=== PATIENT | male | born 1950 | race African-American/Black ===

== ENCOUNTER 2023-01-19 10:04 | Inpatient (IN) | payer MEDICARE, MEDICAID ==
[~2023-01-19] VITALS: Ht 182.9 cm; Wt 78.9 kg
[~2023-01-19 10:04] MED LIST: ACET-2708 PO; AMIN30LI2 PO; APIX2.5T PO; ASCO500C15 PO; ASPI-1497 PO; ATOR20TA65 PO; CHOL2000 PO; EPOE40009 IJ; FENTANYL CITRATE/PF 50MCG/ML 2ML VIAL ONE; FOLI0.8T23 PO; MELA2.5T16 PO; MIDAZOLAM HCL 2 MG/2 ML VIAL ONE; POLY17PO43 PO; PROPOFOL 200MG/20ML VIAL IV ONE; ROCURONIUM BROMIDE 10MG/ML VIAL 5ML IV ONE; SENN-257 PO; SEVE800T8 PO
[2023-01-19 11:00] LABS: BASOPHILS % 0.7 % (0.0-2.0); EOSINOPHILS % 0.7 % (0.0-5.0); HEMATOCRIT. 35.5 % (42.0-52.0); HEMOGLOBIN. 11.4 g/dL (14.0-18.0); LYMPHOCYTES % 13.3 % (20.0-50.0); MEAN CORPUSCULAR HEMOGLOBIN 23.3 pg (28.0-32.0); MEAN CORPUSCULAR VOLUME 72.6 fL (80.0-94.0); NEUTROPHILS % 75.3 % (40.0-76.0); PLATELET 409 x1000/uL (130-400); RED BLOOD CELL COUNT 4.88 mill/uL (4.7-6.1); RED CELL DISTRIBUTION WIDTH 23.5 % (11.6-14.6)
[2023-01-19 11:18] LABS: INR 1.1; PARTIAL THROMBOPLASTIN TIME 34.7 sec (23.4-31.0); PROTHROMBIN TIME 11.9 sec (9.6-11.0)
[2023-01-19 12:49] LABS: PLATELET ESTIMATE NORMAL
[2023-01-19] MEDS ORDERED: SODIUM CHLORIDE 0.9% 500 ML IV SCH (13:00)
[2023-01-19] MEDS ORDERED: POLYMYXIN B SULFATE 500000 UNITS/VIAL ONE (13:59)
[2023-01-19] MEDS ORDERED: LIDOCAINE HCL 1% 20ML VIAL (Pyxis) INJ ONE (13:59)
[2023-01-19] MEDS ORDERED: BUPIVACAINE HCL/PF 0.5% (5MG/ML) 30ML ONE (13:59)
[2023-01-19] MEDS ORDERED: PROPOFOL 200MG/20ML VIAL IV ONE (14:00)
[2023-01-19] MEDS ORDERED: FENTANYL CITRATE/PF 50MCG/ML 2ML VIAL ONE (14:00)
[2023-01-19] MEDS ORDERED: CEFAZOLIN SODIUM 1000MG/VIAL ONE (14:47)
[2023-01-19] MEDS ORDERED: EPHEDRINE SULFATE 50MG/ML VIAL ONE (15:16)
[2023-01-19] MEDS ORDERED: PHENYLEPHRINE HCL 10 MG/ML 1ML (IV VIAL) IV ONE (15:34)
[2023-01-19] MEDS ORDERED: ONDANSETRON HCL 4MG/2ML INJ IV PRN ×2 (16:00→18:15)
[2023-01-19] MEDS ORDERED: LABETALOL 5MG/ML SYR 20 MG/4 ML SYRINGE IV PRN (16:00)
[2023-01-19] MEDS ORDERED: HYDROMORPHONE HCL/PF 2MG/ML CPJ IV PRN (16:00)
[2023-01-19] MEDS ORDERED: MEPERIDINE HCL/PF 25MG/ML CPJ IV PRN (16:00)
[2023-01-19] MEDS ORDERED: MORPHINE SULFATE 2 MG/ML CPJ (NOT FOR IM USE) IV PRN (18:15)
[2023-01-19] MEDS ORDERED: NALOXONE HCL 0.4MG/ML VIAL IV PRN (18:30)
[2023-01-19] MEDS ORDERED: DEXTROSE 50% WATER 50ML SYRINGE IV PRN (18:30)
[2023-01-19 20:00] VITALS: BP 153/80
[2023-01-19] MEDS: BLOOD SUGAR DIAGNOSTIC STRIP TEST SCH (21:00)
[2023-01-19] MEDS: INSULIN LISPRO 100 UNITS/ML SUBCUT SCH (21:00)
[2023-01-20] VITALS (15 sets, daily range): BP systolic 111–183; BP diastolic 50–93
[2023-01-20 06:59] LABS: HEMATOCRIT. 31.3 % (42.0-52.0); HEMOGLOBIN. 9.8 g/dL (14.0-18.0); MEAN CORPUSCULAR VOLUME 73.5 fL (80.0-94.0); MEAN PLATELET VOLUME 7.5 fl (7.4-10.4); PLATELET 403 x1000/uL (130-400); RED BLOOD CELL COUNT 4.26 mill/uL (4.7-6.1); RED CELL DISTRIBUTION WIDTH 23.4 % (11.6-14.6)
[2023-01-20] MEDS: BLOOD SUGAR DIAGNOSTIC STRIP TEST SCH ×3 (07:29→21:00)
[2023-01-20 07:41] LABS: CHLORIDE 99 mEq/L (98-107)
[2023-01-20] MEDS: INSULIN LISPRO 100 UNITS/ML SUBCUT SCH ×2 (07:50→12:50)
[2023-01-20] MEDS: CLONIDINE 0.1MG TABLET PO PRN (08:49)
[2023-01-20] MEDS: AMLODIPINE 5MG TABLET PO SCH (10:00)
[2023-01-20 12:04] LABS: HEPATITIS B SURFACE ANTIGEN NEGATIVE
[2023-01-20 13:37] LABS: PLATELET ESTIMATE SLIGHTLY INCREASED
[2023-01-20] MEDS: SEVELAMER CARBONATE 800 MG TABLET PO SCH (16:38)
[2023-01-20] MEDS: ACETAMINOPHEN 325MG TABLET PO PRN (16:39)
[2023-01-21] VITALS: BP 175/66
[2023-01-21] MEDS: HYDRALAZINE HCL 50MG TABLET PO SCH ×2 (00:47→14:00)
[2023-01-21 04:00] VITALS: BP 181/79
[2023-01-21] MEDS: CLONIDINE 0.1MG TABLET PO PRN (05:43)
[2023-01-21 06:35] LABS: HEMATOCRIT. 30.3 % (42.0-52.0); HEMOGLOBIN. 9.4 g/dL (14.0-18.0); MEAN CORPUSCULAR HEMOGLOBIN 22.7 pg (28.0-32.0); MEAN CORPUSCULAR VOLUME 73.1 fL (80.0-94.0); MEAN PLATELET VOLUME 7.6 fl (7.4-10.4); PLATELET 376 x1000/uL (130-400); RED BLOOD CELL COUNT 4.15 mill/uL (4.7-6.1); RED CELL DISTRIBUTION WIDTH 24.2 % (11.6-14.6)
[2023-01-21] MEDS: BLOOD SUGAR DIAGNOSTIC STRIP TEST SCH ×2 (07:20→12:20)
[2023-01-21] MEDS: INSULIN LISPRO 100 UNITS/ML SUBCUT SCH ×2 (07:50→12:50)
[2023-01-21] MEDS: SEVELAMER CARBONATE 800 MG TABLET PO SCH ×4 (07:50→17:01)
[2023-01-21 08:00] VITALS: BP 170/76
[2023-01-21] MEDS ORDERED: VANCOMYCIN 1,500 MG in DEXT 5% WATER 250 ML IV NR (09:00)
[2023-01-21] MEDS: AMLODIPINE 5MG TABLET PO SCH (09:14)
[2023-01-21] MEDS: FOLIC ACID/VITAMIN B COMP W-C TABLET PO SCH (09:14)
[2023-01-21] MEDS: ACETAMINOPHEN 325MG TABLET PO PRN (09:15)
[2023-01-21 11:43] LABS: PLATELET ESTIMATE NORMAL
[2023-01-21 12:00] VITALS: BP 133/71
[2023-01-21 16:00] VITALS: BP 167/79
[2023-01-21] MEDS ORDERED: NALOXONE HCL 0.4MG/ML VIAL IV PRN (16:15)
[2023-01-21] MEDS: CEFEPIME 1,000 MG in DEXTROSE 5% WATER 50 ML IV SCH (16:45)
[2023-01-21] MEDS: METRONIDAZOLE 500MG TABLET PO SCH (17:01)
[2023-01-21 20:00] VITALS: BP 136/70
[2023-01-22] VITALS (9 sets, daily range): BP systolic 108–159; BP diastolic 59–80
[2023-01-22] MEDS: HYDRALAZINE HCL 50MG TABLET PO SCH ×4 (01:27→22:00)
[2023-01-22 07:03] LABS: HEMATOCRIT. 27.4 % (42.0-52.0); HEMOGLOBIN. 8.6 g/dL (14.0-18.0); MEAN CORPUSCULAR HEMOGLOBIN 23.1 pg (28.0-32.0); MEAN CORPUSCULAR VOLUME 73.5 fL (80.0-94.0); MEAN PLATELET VOLUME 7.4 fl (7.4-10.4); PLATELET 373 x1000/uL (130-400); RED BLOOD CELL COUNT 3.73 mill/uL (4.7-6.1); RED CELL DISTRIBUTION WIDTH 24.3 % (11.6-14.6)
[2023-01-22] MEDS: BLOOD SUGAR DIAGNOSTIC STRIP TEST SCH ×5 (07:20→21:00)
[2023-01-22] MEDS: METRONIDAZOLE 500MG TABLET PO SCH ×2 (09:54→22:58)
[2023-01-22] MEDS: SEVELAMER CARBONATE 800 MG TABLET PO SCH ×3 (09:54→17:34)
[2023-01-22] MEDS: ACETAMINOPHEN 325MG TABLET PO PRN (09:54)
[2023-01-22] MEDS: AMLODIPINE 5MG TABLET PO SCH (09:54)
[2023-01-22] MEDS: FOLIC ACID/VITAMIN B COMP W-C TABLET PO SCH (09:54)
[2023-01-22] MEDS: INSULIN LISPRO 100 UNITS/ML SUBCUT SCH ×4 (09:58→21:00)
[2023-01-22 13:31] LABS: PLATELET ESTIMATE NORMAL
[2023-01-22] MEDS: CEFEPIME 1,000 MG in DEXTROSE 5% WATER 50 ML IV SCH (17:06)
[2023-01-22] MEDS: EPOETIN ALFA-EPBX 4,000 UNIT/ML VIAL SUBCUT SCH (22:59)
[2023-01-22] MEDS: HYDROCODONE/ACETAMINOPHEN 10/325MG TABLET PO PRN (23:00)
[2023-01-23] VITALS: BP 136/72
[2023-01-23 04:00] VITALS: BP 130/66
[2023-01-23] MEDS: HYDRALAZINE HCL 50MG TABLET PO SCH ×3 (06:00→21:13)
[2023-01-23] MEDS: INSULIN LISPRO 100 UNITS/ML SUBCUT SCH ×3 (07:39→20:21)
[2023-01-23] MEDS: BLOOD SUGAR DIAGNOSTIC STRIP TEST SCH ×3 (07:39→20:21)
[2023-01-23] MEDS: SEVELAMER CARBONATE 800 MG TABLET PO SCH ×2 (07:50→12:50)
[2023-01-23 08:00] VITALS: BP 160/78
[2023-01-23] MEDS: AMLODIPINE 5MG TABLET PO SCH (09:00)
[2023-01-23] MEDS: METRONIDAZOLE 500MG TABLET PO SCH ×2 (09:00→21:13)
[2023-01-23] MEDS: FOLIC ACID/VITAMIN B COMP W-C TABLET PO SCH (09:00)
[2023-01-23 12:00] VITALS: BP 143/77
[2023-01-23 16:00] VITALS: BP 154/75
[2023-01-23] MEDS: CEFEPIME 1,000 MG in DEXTROSE 5% WATER 50 ML IV SCH (16:57)
[2023-01-23 17:06] LABS: BASOPHILS % 0.3 % (0.0-2.0); EOSINOPHILS % 0.6 % (0.0-5.0); HEMATOCRIT. 28.2 % (42.0-52.0); HEMOGLOBIN. 8.8 g/dL (14.0-18.0); LYMPHOCYTES % 9.6 % (20.0-50.0); MEAN CORPUSCULAR HEMOGLOBIN 23.1 pg (28.0-32.0); MEAN CORPUSCULAR VOLUME 73.7 fL (80.0-94.0); MEAN PLATELET VOLUME 7.2 fl (7.4-10.4); MONOCYTES % 6.4 % (2.0-8.0); NEUTROPHILS % 83.1 % (40.0-76.0); PLATELET 424 x1000/uL (130-400); RED BLOOD CELL COUNT 3.82 mill/uL (4.7-6.1); RED CELL DISTRIBUTION WIDTH 23.5 % (11.6-14.6)
[2023-01-23 20:00] VITALS: BP 172/86
[2023-01-23] MEDS: CLONIDINE 0.1MG TABLET PO PRN (20:13)
[2023-01-23] MEDS: HYDROCODONE/ACETAMINOPHEN 10/325MG TABLET PO PRN (20:14)
[2023-01-23] MEDS: EPOETIN ALFA-EPBX 4,000 UNIT/ML VIAL SUBCUT SCH (21:14)
[2023-01-24 04:00] VITALS: BP 150/70
[2023-01-24 05:41] LABS: BASOPHILS % 0.4 % (0.0-2.0); EOSINOPHILS % 1.5 % (0.0-5.0); HEMATOCRIT. 28.7 % (42.0-52.0); HEMOGLOBIN. 9.1 g/dL (14.0-18.0); LYMPHOCYTES % 12.6 % (20.0-50.0); MEAN CORPUSCULAR HEMOGLOBIN 23.2 pg (28.0-32.0); MEAN PLATELET VOLUME 7.3 fl (7.4-10.4); MONOCYTES % 7.7 % (2.0-8.0); NEUTROPHILS % 77.8 % (40.0-76.0); PLATELET 436 x1000/uL (130-400); RED BLOOD CELL COUNT 3.93 mill/uL (4.7-6.1); RED CELL DISTRIBUTION WIDTH 24.2 % (11.6-14.6)
[2023-01-24] MEDS: HYDRALAZINE HCL 50MG TABLET PO SCH ×3 (06:00→22:52)
[2023-01-24] MEDS: INSULIN LISPRO 100 UNITS/ML SUBCUT SCH ×4 (07:37→23:04)
[2023-01-24] MEDS: BLOOD SUGAR DIAGNOSTIC STRIP TEST SCH ×4 (07:37→21:00)
[2023-01-24] MEDS: SEVELAMER CARBONATE 800 MG TABLET PO SCH ×3 (07:50→17:50)
[2023-01-24 08:00] VITALS: BP 151/74
[2023-01-24] MEDS: FOLIC ACID/VITAMIN B COMP W-C TABLET PO SCH (09:00)
[2023-01-24] MEDS: AMLODIPINE 5MG TABLET PO SCH (09:00)
[2023-01-24] MEDS: METRONIDAZOLE 500MG TABLET PO SCH ×2 (09:00→22:40)
[2023-01-24 12:00] VITALS: BP 130/67
[2023-01-24] MEDS: HYDROCODONE/ACETAMINOPHEN 10/325MG TABLET PO PRN ×2 (13:30→22:52)
[2023-01-24] MEDS ORDERED: LORAZEPAM 2MG/ML CPJ IV PRN (14:30)
[2023-01-24] MEDS: LORAZEPAM 2MG/ML CPJ IV PRN ×2 (15:02→22:40)
[2023-01-24 16:00] VITALS: BP 126/85
[2023-01-24] MEDS: CEFEPIME 1,000 MG in DEXTROSE 5% WATER 50 ML IV SCH (18:54)
[2023-01-24] MEDS: QUETIAPINE FUMARATE 50MG TABLET PO SCH (22:40)
[2023-01-25] VITALS (14 sets, daily range): BP systolic 114–152; BP diastolic 49–73
[2023-01-25] MEDS: HYDRALAZINE HCL 50MG TABLET PO SCH ×3 (06:04→22:07)
[2023-01-25] MEDS: BLOOD SUGAR DIAGNOSTIC STRIP TEST SCH ×4 (06:16→21:00)
[2023-01-25] MEDS: INSULIN LISPRO 100 UNITS/ML SUBCUT SCH ×4 (06:17→21:00)
[2023-01-25 07:19] LABS: BASOPHILS % 0.3 % (0.0-2.0); EOSINOPHILS % 2.1 % (0.0-5.0); HEMATOCRIT. 24.7 % (42.0-52.0); HEMOGLOBIN. 8.2 g/dL (14.0-18.0); LYMPHOCYTES % 11.1 % (20.0-50.0); MEAN CORPUSCULAR HEMOGLOBIN 24.1 pg (28.0-32.0); MEAN CORPUSCULAR VOLUME 72.6 fL (80.0-94.0); MEAN PLATELET VOLUME 7.2 fl (7.4-10.4); MONOCYTES % 8.3 % (2.0-8.0); NEUTROPHILS % 78.2 % (40.0-76.0); PLATELET 404 x1000/uL (130-400); RED CELL DISTRIBUTION WIDTH 23.3 % (11.6-14.6)
[2023-01-25] MEDS ORDERED: LEVOFLOXACIN 500MG TABLET PO NR (12:00)
[2023-01-25] MEDS: SEVELAMER CARBONATE 800 MG TABLET PO SCH ×3 (12:50→18:33)
[2023-01-25] MEDS: FOLIC ACID/VITAMIN B COMP W-C TABLET PO SCH (15:40)
[2023-01-25] MEDS: AMLODIPINE 5MG TABLET PO SCH (15:40)
[2023-01-25] MEDS: CEPHALEXIN 250MG CAPSULE PO SCH ×2 (15:46→23:33)
[2023-01-25] MEDS: QUETIAPINE FUMARATE 50MG TABLET PO SCH (22:07)
[2023-01-26] VITALS: BP 165/67
[2023-01-26 04:00] VITALS: BP 155/69
[2023-01-26] MEDS: HYDRALAZINE HCL 50MG TABLET PO SCH (06:20)
[2023-01-26] MEDS: BLOOD SUGAR DIAGNOSTIC STRIP TEST SCH (07:20)
[2023-01-26] MEDS: INSULIN LISPRO 100 UNITS/ML SUBCUT SCH (07:50)
[2023-01-26 08:00] VITALS: BP 159/74
[2023-01-26] MEDS: SEVELAMER CARBONATE 800 MG TABLET PO SCH (10:03)
[2023-01-26] MEDS: FOLIC ACID/VITAMIN B COMP W-C TABLET PO SCH (10:03)
[2023-01-26] MEDS: AMLODIPINE 5MG TABLET PO SCH (10:03)
[2023-01-26 11:32] VITALS: BP 159/74
[2023-01-26 12:00] VITALS: BP 147/62
[2023-01-27] MEDS ORDERED: LEVOFLOXACIN 250MG TABLET PO SCH (12:00)
== END 2023-01-26 13:21 | DRG 239 ==
LOC: OR 10:04 → 6EST 19:30
PROVIDERS: ADMIT Podiatrist Foot & Ankle Surgery; ATTEND Podiatrist Foot & Ankle Surgery
PROC: 0Y6N0Z9 Detachment at Left Foot, Partial 1st Ray, Open Approach (ICD-10-PCS; principal; 2023-01-19)
PROC: 0Y6N0ZB Detachment at Left Foot, Partial 2nd Ray, Open Approach (ICD-10-PCS; 2023-01-19)
PROC: 0Y6N0ZC Detachment at Left Foot, Partial 3rd Ray, Open Approach (ICD-10-PCS; 2023-01-19)
PROC: 0Y6N0ZD Detachment at Left Foot, Partial 4th Ray, Open Approach (ICD-10-PCS; 2023-01-19)
PROC: 0Y6N0ZF Detachment at Left Foot, Partial 5th Ray, Open Approach (ICD-10-PCS; 2023-01-19)
PROC: 5A1D70Z Performance of Urinary Filtration, Intermittent, Less than 6 Hours Per Day (ICD-10-PCS; 2023-01-20)
PROC: 5A1D70Z Performance of Urinary Filtration, Intermittent, Less than 6 Hours Per Day (ICD-10-PCS; 2023-01-22)
PROC: 5A1D70Z Performance of Urinary Filtration, Intermittent, Less than 6 Hours Per Day (ICD-10-PCS; 2023-01-25)
DX: E11.52 Type 2 diabetes mellitus with diabetic peripheral angiopathy with gangrene (principal); N18.6 End stage renal disease; L03.116 Cellulitis of left lower limb; I12.0 Hypertensive chronic kidney disease with stage 5 chronic kidney disease or end stage renal disease; F03.90 Unspecified dementia, unspecified severity, without behavioral disturbance, psychotic disturbance, mood disturbance, and anxiety; E11.22 Type 2 diabetes mellitus with diabetic chronic kidney disease; D63.1 Anemia in chronic kidney disease; D72.829 Elevated white blood cell count, unspecified; Z86.73 Personal history of transient ischemic attack (TIA), and cerebral infarction without residual deficits; Z99.2 Dependence on renal dialysis; Z79.4 Long term (current) use of insulin; Z79.899 Other long term (current) drug therapy
CPT/HCPCS: 36415; 71045; 80048; 80053; 80202; 82962; 83036; 85025; 86705; 86709; 86803; 87070; 87075; 87077; 87186; 87340; 88304; 88311; 90935; 93005; 93922; 93970; J0690; J0692; J0885; J1815; J2060; J2250; J2270; J2370; J2704; J3010; J3370; J3490; J7060

== ENCOUNTER 2023-03-07 12:09 | Emergency (ER) | payer MEDICARE, MEDICAID ==
[~2023-03-07] VITALS: Ht 180.3 cm; Wt 82.0 kg
[~2023-03-07 12:09] MED LIST changes: -FENTANYL CITRATE/PF 50MCG/ML 2ML VIAL ONE; -MIDAZOLAM HCL 2 MG/2 ML VIAL ONE; -PROPOFOL 200MG/20ML VIAL IV ONE; -ROCURONIUM BROMIDE 10MG/ML VIAL 5ML IV ONE
[2023-03-07 12:12] VITALS: O2SAT 98
[2023-03-07 12:55] LABS: BASOPHILS % 1.2 % (0.0-2.0); EOSINOPHILS % 0.9 % (0.0-5.0); HEMATOCRIT. 31.9 % (42.0-52.0); HEMOGLOBIN. 10.3 g/dL (14.0-18.0); LYMPHOCYTES % 16.9 % (20.0-50.0); MEAN CORPUSCULAR HEMOGLOBIN 25.8 pg (28.0-32.0); MEAN CORPUSCULAR VOLUME 79.9 fL (80.0-94.0); MEAN PLATELET VOLUME 8.1 fl (7.4-10.4); MONOCYTES % 8.5 % (2.0-8.0); NEUTROPHILS % 72.5 % (40.0-76.0); PLATELET 264 x1000/uL (130-400); RED CELL DISTRIBUTION WIDTH 22.9 % (11.6-14.6)
[2023-03-07 13:58] LABS: PLATELET ESTIMATE NORMAL
[2023-03-07 14:39] LABS: CHLORIDE 107 mEq/L (98-107)
[2023-03-07 18:53] VITALS: BP 179/95; PULSE 77; RESP 17; TEMP 98.3
== END 2023-03-07 18:54 | disposition home or self-care (01) ==
LOC: ER 12:44
DX: S09.90XA Unspecified injury of head, initial encounter (principal); E11.9 Type 2 diabetes mellitus without complications; Z99.2 Dependence on renal dialysis; Z79.899 Other long term (current) drug therapy; W18.39XA Other fall on same level, initial encounter; Y93.89 Activity, other specified; Y92.89 Other specified places as the place of occurrence of the external cause; Y99.8 Other external cause status
CPT/HCPCS: 36415; 80053; 85025; 99284

== ENCOUNTER 2023-03-07 19:30 | Emergency (ER) | payer MEDICARE, MEDICAID ==
[~2023-03-07] VITALS: Ht 177.8 cm; Wt 82.0 kg
[2023-03-07 19:32] VITALS: O2SAT 97
[2023-03-07] MEDS ORDERED: CLONIDINE 0.1MG TABLET PO ONE (23:00)
[2023-03-08] MEDS ORDERED: CLONIDINE 0.1MG TABLET PO NR (00:45)
[2023-03-08 01:55] VITALS: BP 130/61; PULSE 68; RESP 18; TEMP 97.9
== END 2023-03-08 01:56 ==
LOC: ER 19:30
DX: I12.0 Hypertensive chronic kidney disease with stage 5 chronic kidney disease or end stage renal disease (principal); E11.22 Type 2 diabetes mellitus with diabetic chronic kidney disease; N18.6 End stage renal disease; Z99.2 Dependence on renal dialysis; Z79.899 Other long term (current) drug therapy
CPT/HCPCS: 99283

== ENCOUNTER 2023-04-28 02:48 | Inpatient (IN) | payer MEDICARE, MEDICAID ==
[~2023-04-28] VITALS: Ht 170.2 cm; Wt 82.6 kg
[2023-04-28] VITALS (9 sets, daily range): BP systolic 147–193; BP diastolic 77–100; PULSE 67–98; RESP 18–20; TEMP 98–98.7
[2023-04-28] MEDS ORDERED: LORAZEPAM 2MG/ML CPJ IV ONE (03:15)
[2023-04-28] MEDS ORDERED: LEVETIRACETAM 500MG PREMIX 100 ML IV ONE (03:15)
[2023-04-28 03:46] LABS: BASOPHILS % 0.4 % (0.0-2.0); DIFFERENTIAL COMMENT 0; EOSINOPHILS % 0.7 % (0.0-5.0); HEMOGLOBIN. 12.4 g/dL (14.0-18.0); LYMPHOCYTES % 10.3 % (20.0-50.0); MEAN CORPUSCULAR HEMOGLOBIN 25.6 pg (28.0-32.0); MEAN CORPUSCULAR HGB CONC 33.4 g/dL (31.0-37.0); MEAN CORPUSCULAR VOLUME 76.7 fL (80.0-94.0); MEAN PLATELET VOLUME 8.5 fl (7.4-10.4); MONOCYTES % 10.4 % (2.0-8.0); NEUTROPHILS % 78.2 % (40.0-76.0); PLATELET 246 x1000/uL (130-400); RED BLOOD CELL COUNT 4.82 mill/uL (4.7-6.1); RED CELL DISTRIBUTION WIDTH 20.1 % (11.6-14.6); WHITE BLOOD COUNT 8.9 x1000/uL (4.5-11.0)
[2023-04-28 04:00] LABS: CHLORIDE 95 mEq/L (98-107); INDEX HEMOLYSI 1 (1-3); INDEX ICTERIC 1 (1-4); INDEX LIPEMIC 1 (1-3); POTASSIUM 5.5 mEq/L (3.5-5.1); SODIUM 131 mEq/L (136-145)
[2023-04-28 04:11] LABS: ALANINE AMINOTRANSFERASE 32 IU/L (13-61); ALBUMIN 3.4 g/dL (3.4-5.0); ASPARTATE AMINOTRANSFERASE 28 IU/L (15-37); BILIRUBIN TOTAL 0.4 mg/dL (0.1-1.0); CALCIUM 9.1 mg/dL (8.5-10.1); CARBON DIOXIDE 26 mEq/L (21-32); CREATINE KINASE 385 IU/L (39-308); ETHANOL BLOOD < 10 mg/dL (-10); GLUCOSE 77 mg/dL (70-105); PROTEIN TOTAL 7.5 g/dL (6.0-8.3)
[2023-04-28] MEDS ORDERED: FUROSEMIDE 100MG/10ML VIAL IV STA (04:35)
[2023-04-28] MEDS ORDERED: DEXTROSE 50% WATER 50ML SYRINGE IV ONE (04:45)
[2023-04-28] MEDS ORDERED: SODIUM POLYSTYRENE SULFONATE 15 G/60 ML BOT PO ONE (04:45)
[2023-04-28] MEDS ORDERED: SODIUM BICARBONATE 8.4% 1 MEQ/ML 50ML SYR IV ONE (04:45)
[2023-04-28] MEDS ORDERED: ALBUTEROL (0.083%) 2.5MG/3ML NEB HHN ONE (04:45)
[2023-04-28] MEDS ORDERED: CALCIUM CHLORIDE 1GM/10ML SYR IV ONE (04:45)
[2023-04-28] MEDS ORDERED: INSULIN REGULAR (HUMULIN R) 300UNITS/3ML VIAL IV ONE (04:45)
[2023-04-28] MEDS ORDERED: HYDRALAZINE 20MG/ML VIAL IV NR (05:15)
[2023-04-28 05:25] LABS: TROPONIN I HIGH SENSITIVITY 105 ng/L (<78); UREA NITROGEN BLOOD 83 mg/dL (7-21)
[2023-04-28 05:26] LABS: CREATININE 15.5 mg/dL (0.6-1.3)
[2023-04-28] MEDS ORDERED: ACETAMINOPHEN 325MG TABLET PO PRN ×2 (05:45)
[2023-04-28] MEDS ORDERED: IPRATROPIUM/ALBUTEROL 0.5-3(2.5)MG/3ML NEB HHN PRN (05:45)
[2023-04-28] MEDS ORDERED: GUAIFENESIN 200MG/10ML SUGAR FREE UDC PO PRN (05:45)
[2023-04-28] MEDS ORDERED: ONDANSETRON HCL 4MG/2ML INJ IV PRN (05:45)
[2023-04-28] MEDS ORDERED: ENOXAPARIN 40MG/0.4ML SYR SUBCUT SCH (05:45)
[2023-04-28] MEDS ORDERED: MAGNESIUM/ALUMINUM HYDROXIDE/SIMETHICONE 30ML UDC PO PRN (05:45)
[2023-04-28] MEDS ORDERED: DOCUSATE SODIUM 100MG CAPSULE PO PRN (05:45)
[2023-04-28] MEDS ORDERED: LORAZEPAM 2MG/ML CPJ IV NR (06:30)
[2023-04-28] MEDS ORDERED: SODIUM POLYSTYRENE SULFONATE 15 G/60 ML BOT PR NR (06:30)
[2023-04-28 07:16] LABS: INDEX HEMOLYSI 1 (1-3); INDEX ICTERIC 1 (1-4); INDEX LIPEMIC 1 (1-3)
[2023-04-28 07:18] LABS: IRON 82 ug/dL (50-175); TOTAL IRON BINDING CAPACITY 185 ug/dL (250-450)
[2023-04-28 07:41] LABS: CREATINE KINASE MB FRACTION 6.3 ng/mL (0.5-3.6)
[2023-04-28 08:27] LABS: VITAMIN B12 SERUM 608 pg/mL (211-911)
[2023-04-28] MEDS: HYDRALAZINE 20MG/ML VIAL IV PRN ×2 (08:58→21:55)
[2023-04-28] MEDS: ASPIRIN 81MG TABLET PO SCH (09:00)
[2023-04-28] MEDS: LEVETIRACETAM 500MG TABLET PO SCH ×2 (09:00→21:00)
[2023-04-28] MEDS ORDERED: DEXTROSE 50% WATER 50ML SYRINGE IV SCH (09:00)
[2023-04-28] MEDS ORDERED: CALCIUM CHLORIDE 1GM/10ML SYR IV SCH (09:00)
[2023-04-28] MEDS: NITROGLYCERIN 0.1MG/HR PATCH TOP SCH (09:00)
[2023-04-28] MEDS ORDERED: SODIUM BICARBONATE 8.4% 1 MEQ/ML 50ML SYR IV SCH (09:00)
[2023-04-28] MEDS: FAMOTIDINE 20MG/2ML VIAL IV SCH (09:00)
[2023-04-28] MEDS: APIXABAN 2.5 MG TABLET PO SCH (09:00)
[2023-04-28] MEDS ORDERED: SODIUM POLYSTYRENE SULFONATE 15 G/60 ML BOT PO SCH (09:45)
[2023-04-28] MEDS ORDERED: FUROSEMIDE 20MG/2ML VIAL IV SCH (09:45)
[2023-04-28] MEDS ORDERED: INSULIN REGULAR (HUMULIN R) 300UNITS/3ML VIAL IV SCH ×2 (09:45)
[2023-04-28 14:30] LABS: CREATINE KINASE MB FRACTION 7.6 ng/mL (0.5-3.6)
[2023-04-28 20:11] LABS: HEPATITIS B SURFACE ANTIGEN NEGATIVE
[2023-04-28 20:37] LABS: HEPATITIS C VIR.AB 0.13 INDEXVAL (0.00-0.80)
[2023-04-28 20:38] LABS: HEPATITIS B CORE AB IGM NEGATIVE
[2023-04-28 20:40] LABS: HEPATITIS A AB IGM NEGATIVE (NEGATIVE)
[2023-04-28] MEDS: ATORVASTATIN CALCIUM 20MG TABLET PO SCH (21:00)
[2023-04-29] VITALS: BP 144/66; PULSE 82; RESP 20; TEMP 97.9
[2023-04-29] MEDS: HALOPERIDOL LACTATE 5MG/ML VIAL IM PRN ×2 (00:44→20:01)
[2023-04-29 04:00] VITALS: BP 159/85; PULSE 90; RESP 20; TEMP 97.9
[2023-04-29 06:18] LABS: BASOPHILS % 0.6 % (0.0-2.0); EOSINOPHILS % 0.3 % (0.0-5.0); HEMATOCRIT. 39.2 % (42.0-52.0); HEMOGLOBIN. 13.1 g/dL (14.0-18.0); LYMPHOCYTES % 6.1 % (20.0-50.0); MEAN CORPUSCULAR HEMOGLOBIN 25.5 pg (28.0-32.0); MEAN CORPUSCULAR HGB CONC 33.4 g/dL (31.0-37.0); MEAN CORPUSCULAR VOLUME 76.4 fL (80.0-94.0); MEAN PLATELET VOLUME 8.3 fl (7.4-10.4); MONOCYTES % 9.6 % (2.0-8.0); NEUTROPHILS % 83.4 % (40.0-76.0); PLATELET 259 x1000/uL (130-400); RED BLOOD CELL COUNT 5.13 mill/uL (4.7-6.1); RED CELL DISTRIBUTION WIDTH 20.6 % (11.6-14.6); WHITE BLOOD COUNT 8.2 x1000/uL (4.5-11.0)
[2023-04-29 07:06] LABS: ADD RBC MORPHOLOGY YES; DIFFERENTIAL COMMENT 1
[2023-04-29 07:40] LABS: CHLORIDE 97 mEq/L (98-107); INDEX HEMOLYSI 1 (1-3); INDEX ICTERIC 1 (1-4); INDEX LIPEMIC 1 (1-3); POTASSIUM 5.1 mEq/L (3.5-5.1); SODIUM 131 mEq/L (136-145)
[2023-04-29 07:58] LABS: ALANINE AMINOTRANSFERASE 35 IU/L (13-61); ALBUMIN 3.2 g/dL (3.4-5.0); ASPARTATE AMINOTRANSFERASE 39 IU/L (15-37); BILIRUBIN TOTAL 0.6 mg/dL (0.1-1.0); CALCIUM 9.5 mg/dL (8.5-10.1); CARBON DIOXIDE 24 mEq/L (21-32); CHOLESTEROL 155 mg/dL (<200); GLUCOSE 69 mg/dL (70-105); HDL CHOLESTEROL 94 mg/dL (40-59); LDL CHOLESTEROL 54 mg/dL (5-100); PROTEIN TOTAL 7.2 g/dL (6.0-8.3); T4 FREE 1.06 ng/dL (0.76-1.46); TRIGLYCERIDE 43 mg/dL (0-150); UREA NITROGEN BLOOD 59 mg/dL (7-21)
[2023-04-29 08:00] VITALS: BP 150/74; PULSE 84; RESP 18; TEMP 97.8
[2023-04-29 08:09] LABS: CREATININE 12.3 mg/dL (0.6-1.3)
[2023-04-29] MEDS: FAMOTIDINE 20MG/2ML VIAL IV SCH (09:00)
[2023-04-29] MEDS: ASPIRIN 81MG TABLET PO SCH (09:00)
[2023-04-29] MEDS: APIXABAN 2.5 MG TABLET PO SCH (09:00)
[2023-04-29] MEDS: LEVETIRACETAM 500MG TABLET PO SCH ×2 (09:46→20:02)
[2023-04-29] MEDS: NITROGLYCERIN 0.1MG/HR PATCH TOP SCH (09:46)
[2023-04-29 12:00] VITALS: BP 150/56; PULSE 85; RESP 18; TEMP 97.9
[2023-04-29 16:00] VITALS: BP 174/66; PULSE 78; RESP 18; TEMP 97.2
[2023-04-29 20:00] VITALS: BP 167/76; PULSE 92; RESP 20; TEMP 98.1
[2023-04-29] MEDS: CLONIDINE 0.1MG TABLET PO PRN (20:02)
[2023-04-29] MEDS: ATORVASTATIN CALCIUM 20MG TABLET PO SCH (20:02)
[2023-04-29 20:55] LABS: ANISOCYTOSIS 2+; MICROCYTOSIS 1+; PLATELET ESTIMATE NORMAL
[2023-04-30] VITALS (10 sets, daily range): BP systolic 13–182; BP diastolic 54–95; PULSE 72–98; RESP 18–20; TEMP 97.8–98.8
[2023-04-30] MEDS: HYDRALAZINE 20MG/ML VIAL IV PRN (04:57)
[2023-04-30 06:26] LABS: BASOPHILS % 0.8 % (0.0-2.0); DIFFERENTIAL COMMENT 0; EOSINOPHILS % 1.5 % (0.0-5.0); HEMATOCRIT. 36.1 % (42.0-52.0); HEMOGLOBIN. 12.1 g/dL (14.0-18.0); MEAN CORPUSCULAR HEMOGLOBIN 25.8 pg (28.0-32.0); MEAN CORPUSCULAR HGB CONC 33.4 g/dL (31.0-37.0); MEAN CORPUSCULAR VOLUME 77.2 fL (80.0-94.0); MONOCYTES % 11.9 % (2.0-8.0); NEUTROPHILS % 73.8 % (40.0-76.0); PLATELET 258 x1000/uL (130-400); RED BLOOD CELL COUNT 4.68 mill/uL (4.7-6.1); RED CELL DISTRIBUTION WIDTH 20.5 % (11.6-14.6); WHITE BLOOD COUNT 8.2 x1000/uL (4.5-11.0)
[2023-04-30 07:22] LABS: CALCIUM 9.7 mg/dL (8.5-10.1); POTASSIUM 5.2 mEq/L (3.5-5.1)
[2023-04-30 08:15] LABS: CREATININE 15.1 mg/dL (0.6-1.3)
[2023-04-30] MEDS: LEVETIRACETAM 500MG TABLET PO SCH ×2 (09:13→21:37)
[2023-04-30] MEDS: APIXABAN 2.5 MG TABLET PO SCH (09:13)
[2023-04-30] MEDS: ASPIRIN 81MG TABLET PO SCH (09:13)
[2023-04-30] MEDS: NITROGLYCERIN 0.1MG/HR PATCH TOP SCH (09:13)
[2023-04-30] MEDS: FAMOTIDINE 20MG/2ML VIAL IV SCH (09:18)
[2023-04-30] MEDS: ATORVASTATIN CALCIUM 20MG TABLET PO SCH (21:37)
[2023-05-01] VITALS: BP 167/83; PULSE 84; RESP 19; TEMP 98.2
[2023-05-01] MEDS: CLONIDINE 0.1MG TABLET PO PRN ×2 (00:32→08:26)
[2023-05-01 04:00] VITALS: BP 153/82; PULSE 82; RESP 19; RESP 20; TEMP 99.3; TEMP 99.8
[2023-05-01] MEDS ORDERED: DEXTROSE 50% WATER 50ML SYRINGE IV PRN ×2 (06:00)
[2023-05-01 08:00] VITALS: BP 176/83; PULSE 78; RESP 20; TEMP 97.3
[2023-05-01] MEDS: ASPIRIN 81MG TABLET PO SCH (08:26)
[2023-05-01] MEDS: NITROGLYCERIN 0.1MG/HR PATCH TOP SCH (08:26)
[2023-05-01] MEDS: LEVETIRACETAM 500MG TABLET PO SCH (08:26)
[2023-05-01] MEDS: APIXABAN 2.5 MG TABLET PO SCH (08:26)
[2023-05-01] MEDS: FAMOTIDINE 20MG/2ML VIAL IV SCH (08:26)
[2023-05-01 09:17] VITALS: BP 133/69; PULSE 74; TEMP 96.5; O2SAT 98
[2023-05-01 09:40] VITALS: BP 133/69; RESP 18
== END 2023-05-01 11:35 | DRG 640 ==
LOC: ER 02:48 → 7WST 04:12
PROVIDERS: ADMIT Hospitalist; ATTEND Hospitalist
PROC: 5A1D70Z Performance of Urinary Filtration, Intermittent, Less than 6 Hours Per Day (ICD-10-PCS; principal; 2023-04-28)
PROC: 5A1D70Z Performance of Urinary Filtration, Intermittent, Less than 6 Hours Per Day (ICD-10-PCS; 2023-04-30)
DX: E87.5 Hyperkalemia (principal); I50.33 Acute on chronic diastolic (congestive) heart failure; N18.6 End stage renal disease; I13.2 Hypertensive heart and chronic kidney disease with heart failure and with stage 5 chronic kidney disease, or end stage renal disease; I47.1 Supraventricular tachycardia; G40.909 Epilepsy, unspecified, not intractable, without status epilepticus; E11.22 Type 2 diabetes mellitus with diabetic chronic kidney disease; D50.9 Iron deficiency anemia, unspecified; D63.1 Anemia in chronic kidney disease; F03.90 Unspecified dementia, unspecified severity, without behavioral disturbance, psychotic disturbance, mood disturbance, and anxiety; Z99.2 Dependence on renal dialysis; Z86.73 Personal history of transient ischemic attack (TIA), and cerebral infarction without residual deficits; Z79.4 Long term (current) use of insulin
CPT/HCPCS: 36415; 71045; 80048; 80053; 80061; 80320; 82550; 82553; 82607; 82962; 83540; 83550; 84439; 84443; 84484; 85025; 85379; 86705; 86709; 86803; 87340; 90935; 93005; 93306; 93970; 99291; C1893; J0360; J1630; J1815; J1940; J1953; J2060; J3490; G0480